=== PATIENT | female | born 1995 ===

== ENCOUNTER 2021-09-26 11:07 | Emergency (ER) | payer SELFPAY ==
[2021-09-26 11:30] VITALS: BP 111/70
[2021-09-26 13:13] LABS: Basophils % (Auto) 0.4 % (0.0-1.8); Eosinophils # (Auto) 0.2 K/mm3 (0.0-0.4); Eosinophils % (Auto) 1.6 % (0.0-4.3); Hematocrit 39.1 % (30.3-42.9); Hemoglobin 13.7 gm/dl (10.1-14.3); Lymphocytes # (Auto) 2.5 K/mm3 (1.2-5.4); Lymphocytes % (Auto) 22.9 % (13.4-35.0); Mean Corpuscular HGB Conc 35 % (30-34); Mean Corpuscular Volume 93 fl (79-97); Monocytes # (Auto) 0.8 K/mm3 (0.0-0.8); Monocytes % (Auto) 7.6 % (0.0-7.3); Platelet Count 314 K/mm3 (140-440); Red Cell Distribution Width 13.1 % (13.2-15.2)
[2021-09-26 13:24] LABS: Bacteria,Urine 1+ /HPF (Negative); Bilirubin,Urine NEG (Negative); Blood,Urine NEG (Negative); Color,Urine Yellow (Yellow); Mucus,Urine 1+ /HPF; Protein,Urine <15 mg/dL mg/dL (Negative); RBC,Urine < 1.0 /HPF (0.0-6.0); Urobilinogen,Urine < 2.0 mg/dL (<2.0)
[2021-09-26 13:31] LABS: Alanine Aminotransferase 27 units/L (7-56); Albumin 4.4 g/dL (3.9-5); BUN/Creatinine Ratio 20; Blood Urea Nitrogen 10 mg/dL (7-17); Calcium 9.4 mg/dL (8.4-10.2); Hemolysis Index 10
--- NOTE | 2021-09-26 14:03 | Emergency Department Report ---
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 Patient states she is G2, . She has her first INDUSTRIAL PSYCHOLOGIST appointment next week. She denies any vaginal bleeding, dysuria/hematuria/urinary frequency, vomiting, or fever/chills/sweats. No stool changes per patient. She states her pain is mild and rates it as a 4/10 in severity. NKDA per patient Severity scale (0 -10): 0 - Related Data Previous Rx's Medication Instructions Recorded Last Taken Type Acetaminophen [Non-Aspirin Extra 500 - 1,000 mg PO TID PRN #30 tab 09/26/21 Unknown Rx Strength] Allergies Allergy/AdvReac Type Severity Reaction Status Date / Time No Known Allergies Allergy Verified 09/26/21 11:29 ED Review of Systems ROS: Stated complaint: 6WKS / ABD DISCOMFORT Other details as noted in HPI Constitutional: denies: chills, fever, malaise ENT: denies: throat pain Respiratory: denies: cough, shortness of breath Cardiovascular: denies: chest pain Gastrointestinal: abdominal pain. denies: nausea, vomiting Genitourinary: denies: urgency, dysuria, frequency, hematuria, discharge, abnormal menses Musculoskeletal: denies: back pain Neurological: denies: headache Hematological/Lymphatic: denies: swollen glands ED Past Medical Hx - Medications Home Medications: Home Medications Medication Instructions Recorded Confirmed Last Taken Type Acetaminophen [Non-Aspirin Extra 500 - 1,000 mg PO TID PRN #30 tab 09/26/21 Unknown Rx Strength] ED Physical Exam - General Limitations: Language Barrier General appearance: alert, in no apparent distress - Head Head exam: Present: atraumatic, normocephalic - Eye Eye exam: Present: normal appearance. Absent: scleral icterus - Respiratory Respiratory exam: Present: normal lung sounds bilaterally. Absent: respiratory distress - Cardiovascular Cardiovascular Exam: Present: regular rate, normal rhythm - GI/Abdominal GI/Abdominal exam: Present: soft, normal bowel sounds. Absent: distended, tenderness, guarding, rebound, rigid - Back Exam Back exam: Absent: CVA tenderness (R), CVA tenderness (L) - Neurological Exam Neurological exam: Present: alert, oriented X3, normal gait - Psychiatric Psychiatric exam: Present: normal affect, normal mood - Skin Skin exam: Present: warm, dry, intact, normal color. Absent: rash ED Course Vital Signs 09/26/21 11:29 Temperature 98.6 F Pulse Rate 76 Respiratory 18 Rate Blood Pressure 111/70 [Right] O2 Sat by Pulse 100 Oximetry ED Medical Decision Making - Lab Data Result diagrams: 09/26/21 12:32 09/26/21 12:32 Lab Results 09/26/21 09/26/21 09/26/21 Range/Units 12:32 12:32 12:32 WBC 11.0 (4.5-11.0) K/mm3 RBC 4.20 (3.65-5.03) M/mm3 Hgb 13.7 (10.1-14.3) gm/dl Hct 39.1 (30.3-42.9) % MCV 93 (79-97) fl MCH 33 H (28-32) pg MCHC 35 H (30-34) % RDW 13.1 L (13.2-15.2) % Plt Count 314 (140-440) K/mm3 Lymph % (Auto) 22.9 (13.4-35.0) % Johnston % (Auto) 7.6 H (0.0-7.3) % Eos % (Auto) 1.6 (0.0-4.3) % Baso % (Auto) 0.4 (0.0-1.8) % Lymph # (Auto) 2.5 (1.2-5.4) K/mm3 Johnston # (Auto) 0.8 (0.0-0.8) K/mm3 Eos # (Auto) 0.2 (0.0-0.4) K/mm3 Baso # (Auto) 0.0 (0.0-0.1) K/mm3 Seg Neutrophils % 67.5 (40.0-70.0) % Seg Neutrophils # 7.4 (1.8-7.7) K/mm3 Sodium 138 (137-145) mmol/L Potassium 4.3 (3.6-5.0) mmol/L Chloride 103.5 (98-107) mmol/L Carbon Dioxide 22 (22-30) mmol/L Anion Gap 17 mmol/L BUN 10 (7-17) mg/dL Creatinine 0.5 L (0.6-1.2) mg/dL Estimated GFR > 60 ml/min BUN/Creatinine Ratio 20 % Glucose 89 (65-100) mg/dL Calcium 9.4 (8.4-10.2) mg/dL Total Bilirubin 0.40 (0.1-1.2) mg/dL AST 23 (5-40) units/L ALT 27 (7-56) units/L Alkaline Phosphatase 86 (35-129) units/L Total Protein 7.6 (6.3-8.2) g/dL Albumin 4.4 (3.9-5) g/dL Albumin/Globulin Ratio 1.4 % HCG, Quant 71823 H (0-4) mIU/mL Urine Color (Yellow) Urine Turbidity (Clear) Urine pH (5.0-7.0) Ur Specific [place] (1.003-1.030) Urine Protein (Negative) mg/dL Urine Glucose (UA) (Negative) mg/dL Urine Ketones (Negative) mg/dL Urine Blood (Negative) Urine Nitrite (Negative) Urine Bilirubin (Negative) Urine Urobilinogen (<2.0) mg/dL Ur Leukocyte Esterase (Negative) Urine WBC (Auto) (0.0-6.0) /HPF Urine RBC (Auto) (0.0-6.0) /HPF U Epithel Cells (Auto) (0-13.0) /HPF Urine Bacteria (Auto) (Negative) /HPF Urine Mucus /HPF Blood Type 09/26/21 09/26/21 Range/Units 12:32 12:47 WBC (4.5-11.0) K/mm3 RBC (3.65-5.03) M/mm3 Hgb (10.1-14.3) gm/dl Hct (30.3-42.9) % MCV (79-97) fl MCH (28-32) pg MCHC (30-34) % RDW (13.2-15.2) % Plt Count (140-440) K/mm3 Lymph % (Auto) (13.4-35.0) % [place] % (Auto) (0.0-7.3) % Eos % (Auto) (0.0-4.3) % Baso % (Auto) (0.0-1.8) % Lymph # (Auto) (1.2-5.4) K/mm3 Johnston # (Auto) (0.0-0.8) K/mm3 Eos # (Auto) (0.0-0.4) K/mm3 Baso # (Auto) (0.0-0.1) K/mm3 Seg Neutrophils % (40.0-70.0) % Seg Neutrophils # (1.8-7.7) K/mm3 Sodium (137-145) mmol/L Potassium (3.6-5.0) mmol/L Chloride (98-107) mmol/L Carbon Dioxide (22-30) mmol/L Anion Gap mmol/L BUN (7-17) mg/dL Creatinine (0.6-1.2) mg/dL Estimated GFR ml/min BUN/Creatinine Ratio % Glucose (65-100) mg/dL Calcium (8.4-10.2) mg/dL Total Bilirubin (0.1-1.2) mg/dL AST (5-40) units/L ALT (7-56) units/L Alkaline Phosphatase (35-129) units/L Total Protein (6.3-8.2) g/dL Albumin (3.9-5) g/dL Albumin/Globulin Ratio % HCG, Quant (0-4) mIU/mL Urine Color Yellow (Yellow) Urine Turbidity Clear (Clear) Urine pH 7.0 (5.0-7.0) Ur Specific [place] 1.023 (1.003-1.030) Urine Protein <15 mg/dl (Negative) mg/dL Urine Glucose (UA) Neg (Negative) mg/dL Urine Ketones Neg (Negative) mg/dL Urine Blood Neg (Negative) Urine Nitrite Neg (Negative) Urine Bilirubin Neg (Negative) Urine Urobilinogen < 2.0 (<2.0) mg/dL Ur Leukocyte Esterase Neg (Negative) Urine WBC (Auto) 2.0 (0.0-6.0) /HPF Urine RBC (Auto) < 1.0 (0.0-6.0) /HPF U Epithel Cells (Auto) 17.0 H (0-13.0) /HPF Urine Bacteria (Auto) 1+ (Negative) /HPF Urine Mucus 1+ /HPF Blood Type O POSITIVE - Radiology Data Radiology results: report reviewed ULTRASOUND PELVIS INDICATION: pain, 6 wks . TECHNIQUE: Transabdominal and Transvaginal. Duplex Color Doppler used: Yes. COMPARISON: None available FINDINGS: Uterus: Present. Size: 8.6 x 5.1 x 5.5 cm. Endometrial complex: Viable intrauterine is dated 6 weeks 0 days. heart tones are 118 bpm. A small subchorionic hemorrhage is present. Mass lesions: None. Additional findings: None. Right Ovary -- 2.8 x 1.2 x 1.3 cm. Blood flow: Normal. Cyst or mass: None. Left Ovary-- 3.5 x 2.2 x 3.6 cm. Blood flow: Normal. Cyst or mass: 2.7 cm cyst. Urinary Bladder: Normal. Free Fluid: None. Additional Findings: None. IMPRESSION: 1. Early intrauterine dated 6 weeks 0 days. Small subchorionic hemorrhage. 2. 2.7 cm left ovarian cyst. - Medical Decision Making 26-year-old female patient presents with complaints of lower abdominal pain during today. Patient states she is G2, . She has her first INDUSTRIAL PSYCHOLOGIST appointment next week. She denies any vaginal bleeding, dysuria/hematuria/urinary frequency, vomiting, or fever/chills/sweats. No stool changes per patient. She states her pain is mild and rates it as a 4/10 in severity. NKDA per patient No acute abnormalities noted on labs. Ultrasound shows 6-week 0-day IUP with small subchorionic hemorrhage. No other acute findings are noted. Recommend patient follows up with her INDUSTRIAL PSYCHOLOGIST as scheduled next week. Her vitals are with in normal limits, she is well-appearing, she is stable for discharge home. Discussed in detail signs and symptoms that should prompt immediate return to ED with patient who verbalizes understanding Critical care attestation.: If time is entered above; I have spent that time in minutes in the direct care of this critically ill patient, excluding procedure time. ED Disposition Clinical Impression: Abdominal pain in Disposition: 01 HOME / SELF CARE / HOMELESS Is pt being admited?: No Condition: Stable Instructions: Abdominal Pain (ED), Abdominal Pain During , [id number], Activity Restriction During Additional Instructions: Please follow-up with your INDUSTRIAL PSYCHOLOGIST as scheduled Prescriptions: Acetaminophen [Non-Aspirin Extra Strength] 500 - 1,000 mg PO TID PRN #30 tab PRN Reason: pain Forms: Work/School Release Form(ED) Print Language: KAZAKH
--- NOTE | 2021-09-26 14:20 | Ultrasound Report ---
ULTRASOUND PELVIS INDICATION: pain, 6 wks . TECHNIQUE: Transabdominal and Transvaginal. Duplex Color Doppler used: Yes. COMPARISON: None available FINDINGS: Uterus: Present. Size: 8.6 x 5.1 x 5.5 cm. Endometrial complex: Viable intrauterine is dated 6 weeks 0 days. heart tones are 118 bpm. A small subchorionic hemorrhage is present. Mass lesions: None. Additional findings: None. Right Ovary -- 2.8 x 1.2 x 1.3 cm. Blood flow: Normal. Cyst or mass: None. Left Ovary-- 3.5 x 2.2 x 3.6 cm. Blood flow: Normal. Cyst or mass: 2.7 cm cyst. Urinary Bladder: Normal. Free Fluid: None. Additional Findings: None. IMPRESSION: 1. Early intrauterine dated 6 weeks 0 days. Small subchorionic hemorrhage. 2. 2.7 cm left ovarian cyst. Signer Name: Feng Lombardo MD Signed: 09/26/2021 2:16 PM Workstation Name: [id number]
== END 2021-09-26 16:35 | disposition home or self-care (01) ==
LOC: ED 11:07
DX: O26.891 Other specified pregnancy related conditions, first trimester (principal); R10.30 Lower abdominal pain, unspecified; Z3A.01 Less than 8 weeks gestation of pregnancy
CPT/HCPCS: 36415; 76801; 76817; 80053; 81001; 84702; 85025; 86900; 86901; 87086; 99284